=== PATIENT | female | born 1970 | race Caucasian/White ===

== ENCOUNTER → 2025-09-09 13:15 | Outpatient (BNVA) | payer MEDICAID, SELFPAY | PROVIDERS: PCP Family Medicine; Referring Provider Family Medicine; Visit Provider Specialist | DX: G43.909 Migraine, unspecified, not intractable, without status migrainosus (principal); R03.0 Elevated blood-pressure reading, without diagnosis of hypertension; G43.711 Chronic migraine without aura, intractable, with status migrainosus | CPT/HCPCS: 99204 ==